=== PATIENT | male | born 1935 | race African-American/Black ===

== ENCOUNTER 2022-09-13 12:16 | Inpatient (IN) ==
[2022-09-13 16:41] VITALS: BMI 28.5
--- NOTE | 2022-09-13 17:31 | DR.UPDATE ---
H&P UPDATE Review Yes Any changes to H&P?: No
[2022-09-13] MEDS: LR 1,000 ML IV 1,000 ML IV SCH (17:36)
[2022-09-13] MEDS ORDERED: PERCOCET TAB 5/325 MG PO PRN (17:37)
[2022-09-13 20:06] LABS: BASOPHILS % (AUTO) 0.5 % (0.2-1.0); EOSINOPHILS # (AUTO) 0.3 x10^3/uL (0.0-0.2); EOSINOPHILS % (AUTO) 5.7 % (0.9-2.9); HEMATOCRIT 24.6 % (42.0-54.0); HEMOGLOBIN 8.3 g/dL (13.5-18.0); LYMPHOCYTES # (AUTO) 1.6 X10^3/uL (1.3-2.9); LYMPHOCYTES % (AUTO) 28.7 % (21.0-51.0); MEAN CORPUSCULAR HEMOGLOBIN 29.8 pg (27.0-34.0); MEAN CORPUSCULAR HGB CONC 33.9 g/dL (33.0-35.0); MEAN CORPUSCULAR VOLUME 87.9 fL (80.0-100.0); MEAN PLATELET VOLUME 7.7 fL (7.4-11.0); MONOCYTES # (AUTO) 0.7 x10^3/uL (0.3-0.8); MONOCYTES % (AUTO) 12.6 % (0.0-13.0); NEUTROPHILS # (AUTO) 2.9 x10^3/uL (2.2-4.8); NEUTROPHILS % (AUTO) 52.5 % (42.0-75.0); RED BLOOD COUNT 2.79 X10^6/uL (4.7-6.0); RED CELL DISTRIBUTION WIDTH 13.7 % (11.6-16.5); WHITE BLOOD COUNT 5.4 X10^3/uL (3.6-10.0)
[2022-09-13 20:14] LABS: ALBUMIN 2.8 g/dL (3.4-5.0); CALCIUM 7.7 mg/dL (8.5-10.1); CARBON DIOXIDE 23.4 mmol/L (21-32); COR CA(FOR HYPOALB) 8.7 mg/dL (8.5-10.1); CREATININE 1.87 mg/dL (0.70-1.30); TOTAL PROTEIN 6.9 g/dL (6.4-8.2)
[2022-09-13] MEDS: APRESOLINE TAB 25 MG PO SCH (20:37)
[2022-09-13] MEDS: CRESTOR TAB 10 MG PO SCH (20:38)
[2022-09-13] MEDS: NovoLIN R (or HumuLIN R) SC PRN (20:39)
--- NOTE | 2022-09-13 21:56 | EKG ---
Test Reason : surgery Blood Pressure : */* mmHG Vent. Rate : 47 BPM Atrial Rate : * BPM P-R Int : * ms QRS Dur : 70 ms QT Int : 454 ms P-R-T Axes : * -32 24 degrees QTc Int : 401 ms Mobitz I AV block, 5:4 Left axis deviation Inferior infarct , age undetermined Abnormal ECG No previous ECGs available Confirmed by Brandon Coello ([id number]) on 09/16/2022 7:11:48 AM Referred By: Confirmed By: Brandon Coello
[2022-09-14] MEDS: LR 1,000 ML IV 1,000 ML IV SCH ×3 (05:12→23:05)
[2022-09-14 06:24] LABS: BASOPHILS % (AUTO) 0.9 % (0.2-1.0); EOSINOPHILS # (AUTO) 0.4 x10^3/uL (0.0-0.2); EOSINOPHILS % (AUTO) 8.4 % (0.9-2.9); HEMOGLOBIN 8.5 g/dL (13.5-18.0); LYMPHOCYTES # (AUTO) 1.4 X10^3/uL (1.3-2.9); LYMPHOCYTES % (AUTO) 30.8 % (21.0-51.0); MEAN CORPUSCULAR HEMOGLOBIN 29.5 pg (27.0-34.0); MEAN CORPUSCULAR HGB CONC 33.8 g/dL (33.0-35.0); MEAN CORPUSCULAR VOLUME 87.4 fL (80.0-100.0); MEAN PLATELET VOLUME 8.2 fL (7.4-11.0); MONOCYTES # (AUTO) 0.6 x10^3/uL (0.3-0.8); MONOCYTES % (AUTO) 12.7 % (0.0-13.0); NEUTROPHILS # (AUTO) 2.1 x10^3/uL (2.2-4.8); NEUTROPHILS % (AUTO) 47.2 % (42.0-75.0); RED BLOOD COUNT 2.86 X10^6/uL (4.7-6.0); RED CELL DISTRIBUTION WIDTH 13.3 % (11.6-16.5); WHITE BLOOD COUNT 4.5 X10^3/uL (3.6-10.0)
[2022-09-14 07:19] LABS: ALBUMIN 2.9 g/dL (3.4-5.0); CALCIUM 7.9 mg/dL (8.5-10.1); CARBON DIOXIDE 23.9 mmol/L (21-32); COR CA(FOR HYPOALB) 8.8 mg/dL (8.5-10.1); CREATININE 1.63 mg/dL (0.70-1.30)
[2022-09-14] MEDS: BENICAR TAB 40 MG PO SCH (08:57)
[2022-09-14] MEDS: NORVASC TAB 10 MG PO SCH (08:57)
[2022-09-14] MEDS: HYDROCHLOROTHIAZIDE 25 MG TAB PO SCH (08:57)
[2022-09-14] MEDS: APRESOLINE TAB 25 MG PO SCH ×3 (08:59→21:34)
[2022-09-14] MEDS ORDERED: LR 1,000 ML IV 1,000 ML IV ONE (10:26)
[2022-09-14] MEDS ORDERED: ANCEF VIAL 1 GRAM ONE (10:26)
[2022-09-14] MEDS ORDERED: NS 100 ML IV 100 ML ONE (10:26)
[2022-09-14] MEDS ORDERED: MARCAINE 0.5% ONE (10:48)
[2022-09-14] MEDS ORDERED: HEPARIN SODIUM IN D5W 75,000 UNITS/1,500 ML BAG ONE (10:49)
[2022-09-14] MEDS ORDERED: DIPRIVAN VIAL 20 ML ONE ×2 (10:54→12:13)
[2022-09-14] MEDS ORDERED: VERSED ONE (10:55)
[2022-09-14] MEDS ORDERED: FENTANYL VIAL INJ 100 mcg ONE (10:56)
[2022-09-14] MEDS ORDERED: ZOFRAN INJ 4 MG VIAL ONE (10:57)
[2022-09-14] MEDS ORDERED: PEPCID 20 MG VIAL ONE (10:57)
[2022-09-14] MEDS ORDERED: KETAMINE HCL ONE (11:10)
--- NOTE | 2022-09-14 11:12 | RAD ---
CHEST, 1 VIEWHISTORY: [id number] LEFT LEGStudy: Single view of the chest.Comparison:NoneFindings:The cardiomediastinal silhouette is normal.No focal consolidations, pleural effusions or pneumothorax. Osseous structures demonstrate no acute abnormality.IMPRESSION:1. No acute cardiopulmonary process.Electronically signed by: TREV BECK (Sep 14, 2022 11:10:44)
[2022-09-14] MEDS ORDERED: HEPARIN SODIUM INJ 5000 UNITS ONE (11:28)
[2022-09-14] MEDS ORDERED: NS 500 ML IV 500 ML IV ONE (11:39)
[2022-09-14] MEDS ORDERED: PERCOCET TAB 5/325 MG PO PRN (12:30)
[2022-09-14] MEDS ORDERED: PROTAMINE SULFATE 50 MG VIAL ONE (12:32)
--- NOTE | 2022-09-14 12:36 | OR.IMMED ---
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
[2022-09-14] MEDS: CRESTOR TAB 10 MG PO SCH (21:35)
[2022-09-14] MEDS: NovoLIN R (or HumuLIN R) SC PRN (21:36)
[2022-09-15 06:21] LABS: BASOPHILS % (AUTO) 0.4 % (0.2-1.0); EOSINOPHILS # (AUTO) 0.4 x10^3/uL (0.0-0.2); EOSINOPHILS % (AUTO) 6.1 % (0.9-2.9); HEMATOCRIT 23.8 % (42.0-54.0); HEMOGLOBIN 8.1 g/dL (13.5-18.0); LYMPHOCYTES # (AUTO) 0.7 X10^3/uL (1.3-2.9); LYMPHOCYTES % (AUTO) 10.7 % (21.0-51.0); MEAN CORPUSCULAR HEMOGLOBIN 29.7 pg (27.0-34.0); MEAN CORPUSCULAR HGB CONC 33.9 g/dL (33.0-35.0); MEAN CORPUSCULAR VOLUME 87.7 fL (80.0-100.0); MEAN PLATELET VOLUME 8.3 fL (7.4-11.0); MONOCYTES # (AUTO) 0.7 x10^3/uL (0.3-0.8); MONOCYTES % (AUTO) 10.6 % (0.0-13.0); NEUTROPHILS # (AUTO) 4.5 x10^3/uL (2.2-4.8); NEUTROPHILS % (AUTO) 72.2 % (42.0-75.0); RED BLOOD COUNT 2.71 X10^6/uL (4.7-6.0); RED CELL DISTRIBUTION WIDTH 13.5 % (11.6-16.5); WHITE BLOOD COUNT 6.2 X10^3/uL (3.6-10.0)
[2022-09-15 06:31] LABS: CALCIUM 7.7 mg/dL (8.5-10.1); CARBON DIOXIDE 22.9 mmol/L (21-32); CREATININE 1.43 mg/dL (0.70-1.30)
[2022-09-15 07:56] VITALS: BP 189/79
[2022-09-15] MEDS: APRESOLINE TAB 25 MG PO SCH (08:45)
[2022-09-15] MEDS: BENICAR TAB 40 MG PO SCH (08:45)
[2022-09-15] MEDS: HYDROCHLOROTHIAZIDE 25 MG TAB PO SCH (08:45)
[2022-09-15] MEDS: NORVASC TAB 10 MG PO SCH (08:45)
[2022-09-15] MEDS: LR 1,000 ML IV 1,000 ML IV SCH (09:15)
--- NOTE | 2022-09-15 11:51 | W.DIS.FURT ---
Summary of Discharge Discharge Summary of Date Date of Exam: 09/15/22 Admission Date Date of Admission: 09/13/22 Admission Diagnosis Hospital Course: 87 year old male who presented to my office on September 13. He has a history of a right transmetatarsal amputation. He has had all the toes of the left foot removed except for the small toe which had evidence of dry gangrene. 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 He has a history of diabetes. He is not a smoker. 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 He has done well. Discharge today on his usual medications plus Xarelto 2.5 mg BID and aspirin 81 mg po daily . He follow up in one week with me . He will need intervention of the right leg in the future. He will be referred back to Dr. Santoyo who will address the gangrenous toe with amputation. Amputation should heal now that wwe have re-established adequate blood floe to the left foot. Vital Signs: Vital Signs (72 hours) 09/13/22 15:27 09/13/22 16:00 09/13/22 17:41 Temperature 98.6 F Pulse Rate [Left Radial] 60 Respiratory Rate 18 Blood Pressure [Left Arm] Blood Pressure [Right Arm] 155/72 O2 Sat by Pulse Oximetry 100 Oxygen Delivery Method Room Air Room Air 09/13/22 20:38 09/13/22 20:00 09/13/22 19:00 Temperature 97.9 F Pulse Rate [Left Radial] 63 Respiratory Rate 16 18 Blood Pressure [Left Arm] Blood Pressure [Right Arm] 176/77 O2 Sat by Pulse Oximetry 99 Oxygen Delivery Method Room Air Room Air 09/13/22 21:38 09/14/22 00:00 09/14/22 04:00 Temperature 97.7 F 97.8 F Pulse Rate [Left Radial] 55 L 68 Respiratory Rate 18 18 18 Blood Pressure [Left Arm] Blood Pressure [Right Arm] 158/72 160/68 O2 Sat by Pulse Oximetry 97 96 Oxygen Delivery Method Room Air 09/14/22 07:43 09/14/22 08:00 09/14/22 12:50 Temperature 98 F 97.6 F Pulse Rate [Left Radial] 62 64 Respiratory Rate 20 18 Blood Pressure [Left Arm] Blood Pressure [Right Arm] 160/60 186/79 O2 Sat by Pulse Oximetry 97 99 Oxygen Delivery Method Room Air Room Air Room Air 09/14/22 13:05 09/14/22 13:20 09/14/22 13:35 Temperature 97.6 F 97.6 F 97.6 F Pulse Rate [Left Radial] 50 L 63 64 Respiratory Rate 18 18 18 Blood Pressure [Left Arm] Blood Pressure [Right Arm] 167/74 173/70 182/81 O2 Sat by Pulse Oximetry 99 100 100 Oxygen Delivery Method Room Air Room Air Room Air 09/14/22 13:50 09/14/22 14:50 09/14/22 15:50 Temperature 97.6 F 97.6 F 97.6 F Pulse Rate [Left Radial] 64 57 L 58 L Respiratory Rate 18 18 18 Blood Pressure [Left Arm] Blood Pressure [Right Arm] 175/81 179/76 170/78 O2 Sat by Pulse Oximetry 99 99 98 Oxygen Delivery Method Room Air Room Air Room Air 09/14/22 16:50 09/14/22 19:00 09/14/22 20:00 Temperature 97.6 F 98.5 F Pulse Rate [Left Radial] 57 L 65 Respiratory Rate 18 18 Blood Pressure [Left Arm] Blood Pressure [Right Arm] 179/76 136/72 O2 Sat by Pulse Oximetry 99 98 Oxygen Delivery Method Room Air Room Air Room Air 09/15/22 00:00 09/15/22 04:00 09/15/22 07:56 Temperature 98.6 F 98.0 F 98.8 F Pulse Rate [Left Radial] 64 64 80 Respiratory Rate 20 20 18 Blood Pressure [Left Arm] 167/70 156/73 189/79 Blood Pressure [Right Arm] O2 Sat by Pulse Oximetry 97 97 95 Oxygen Delivery Method Room Air 09/15/22 07:00 Temperature Pulse Rate [Left Radial] Respiratory Rate Blood Pressure [Left Arm] Blood Pressure [Right Arm] O2 Sat by Pulse Oximetry Oxygen Delivery Method Room Air Labs: Laboratory Last Values WBC 6.2 X10^3/uL (3.6-10.0) 09/15/22 05:23 RBC 2.71 X10^6/uL (4.7-6.0) L 09/15/22 05:23 Hgb 8.1 g/dL (13.5-18.0) L 09/15/22 05:23 Hct 23.8 % (42.0-54.0) L 09/15/22 05:23 MCV 87.7 fL (80.0-100.0) 09/15/22 05:23 MCH 29.7 pg (27.0-34.0) 09/15/22 05:23 MCHC 33.9 g/dL (33.0-35.0) 09/15/22 05:23 RDW 13.5 % (11.6-16.5) 09/15/22 05:23 Plt Count 202 X10^3/uL (150.0-450.0) 09/15/22 05:23 MPV 8.3 fL (7.4-11.0) 09/15/22 05:23 Neut % (Auto) 72.2 % (42.0-75.0) 09/15/22 05:23 Lymph % (Auto) 10.7 % (21.0-51.0) L 09/15/22 05:23 Roberts % (Auto) 10.6 % (0.0-13.0) 09/15/22 05:23 Eos % (Auto) 6.1 % (0.9-2.9) H 09/15/22 05:23 Baso % (Auto) 0.4 % (0.2-1.0) 09/15/22 05:23 Neut # (Auto) 4.5 x10^3/uL (2.2-4.8) 09/15/22 05:23 Lymph # (Auto) 0.7 X10^3/uL (1.3-2.9) L 09/15/22 05:23 Roberts # (Auto) 0.7 x10^3/uL (0.3-0.8) 09/15/22 05:23 Eos # (Auto) 0.4 x10^3/uL (0.0-0.2) H 09/15/22 05:23 Baso # (Auto) 0.0 X10^3/uL (0.0-0.1) 09/15/22 05:23 Absolute Nucleated RBC 0.1 /100WBC 09/15/22 05:23 Sodium 139 mmol/L (136-145) 09/15/22 05:23 Corrected Sodium 140 mmol/L (136-145) 09/15/22 05:23 Potassium 5.0 mmol/L (3.5-5.1) 09/15/22 05:23 Chloride 108 mmol/L (98-107) H 09/15/22 05:23 Carbon Dioxide 22.9 mmol/L (21-32) 09/15/22 05:23 BUN 22 mg/dL (7-18) H 09/15/22 05:23 Creatinine 1.43 mg/dL (0.70-1.30) H 09/15/22 05:23 Est GFR (MDRD) Af Amer 60 (>60) 09/15/22 05:23 Est GFR (MDRD) Non-Af 50 (>60) L 09/15/22 05:23 Glucose 155 mg/dL (65-99) H 09/15/22 05:23 POC Glucose (mg/dL) 247 mg/dL (65-99) H 09/15/22 10:33 Calcium 7.7 mg/dL (8.5-10.1) L 09/15/22 05:23 Corrected Calcium 8.8 mg/dL (8.5-10.1) 09/14/22 05:25 Total Bilirubin 0.30 mg/dL (0.2-1.0) 09/14/22 05:25 AST 25 Units/L (15-37) 09/14/22 05:25 ALT 26 Units/L (12-78) 09/14/22 05:25 Alkaline Phosphatase 53 Units/L (46-116) 09/14/22 05:25 Total Protein 7.0 g/dL (6.4-8.2) 09/14/22 05:25 Albumin 2.9 g/dL (3.4-5.0) L 09/14/22 05:25 Globulin 4.1 g/dL (2.5-4.5) 09/14/22 05:25 Albumin/Globulin Ratio 0.7 Ratio (1.1-2.1) L 09/14/22 05:25 Blood Type O POSITIVE 09/14/22 10:43 Antibody Screen Negative 09/14/22 10:40 Reason For Visit: CRITICAL ISCHEMIA LEFT LEG Discharge Date Discharge Date: 09/15/22 Discharge Diagnosis All Active Problems (Updated 09/13/22 @ 19:39 by Tino Bedoya) Atherosclerosis of [place] arteries of extremities with rest pain, right leg (Acute) Atherosclerosis of [place] arteries of extremities with rest pain, left leg (Acute) Plan of Treatment: Continue with present treatment and follow up plan. Pt is to keep follow up appointment as instructed and take medications as ordered. Discharge Medications Discharge Medications: No Known Allergies Allergy (Verified 09/14/22 07:05) CONTINUE taking the following medications amlodipine 10 mg-olmesartan 40 mg tablet 1 tab PO QAM 09/13/22 [History] aspirin 81 mg tablet 81 mg PO QDAY 09/13/22 [History] glimepiride 2 mg tablet 2 mg PO QAM 09/13/22 [History] hydralazine 50 mg tablet 2 tab PO QPM 09/13/22 [History] hydrochlorothiazide 25 mg tablet 25 mg PO DAILY 09/13/22 [History] New Prescriptions rivaroxaban 2.5 mg tablet (Xarelto) 2.5 mg PO BID #180 tabs 09/15/22 [Rx] Discharge Disposition Assessment: No acute distress noted at time of discharge. Discharge Plan Discharge Plan Hospital Course: 87 year old male who presented to my office on September 13. He has a history o f a right transmetatarsal amputation. He has had all the toes of the left foot removed except for the small toe which had evidence of dry gangrene. 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 He has a history of diabetes. He is not a smoker. 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 He has done well. Discharge today on his usual medications plus Xarelto 2.5 mg BID and aspirin 81 mg po daily . He follow up in one week with me . He will need intervention of the right leg in the future. He will be referred back to Dr. Santoyo who will address the gangrenous toe with amputation. Amputation should heal now that wwe have re-established adequate blood floe to the left foot. Patient Disposition: 06 HOME HEALTH SERVICE Condition: Stable Health Concerns: Post Hospitalization: new medications and changes needed to prevent readmission or further decline. Pt educated and given instructions on all concerns. Care Plan Goals: Problem: Pain/Alteration in Comfort Goal: Improve/ Resolve Pain; Achieve Pain Tolerance Instructions: Take pain medications as prescribed. Contact your primary care provider if your pain is unrelieved or worsens. Follow up with primary care provider as directed. Plan of Treatment: Continue with present treatment and follow up plan. Pt is to keep follow up appointment as instructed and take medications as ordered. Assessment: No acute distress noted at time of discharge. Prescription drug monitoring program results: PDMP reviewed and no concerns identified Prescriptions: New Xarelto 2.5 mg Tablet 2.5 mg PO BID Qty: 180 0RF No Action glimepiride 2 mg tablet 2 mg PO QAM hydralazine 50 mg tablet 2 tab PO QPM aspirin 81 mg Tablet 81 mg PO QDAY hydrochlorothiazide [HydroDiuril] 25 mg Tablet 25 mg PO DAILY amlodipine-olmesartan 10-40 mg tablet 1 tab PO QAM Follow ups/Referrals Follow ups/Referrals: Cinthya PHAM [Other] - 09/15/22 10:45 am Tino Bedoya [STAFF PHYSICIAN] - 09/27/22 11:30 am SEGUN SANTOYO [REFERRING] - 09/29/22 10:30 am Instructions Instructions: Bleeding Precautions When on Anticoagulant Therapy, Adult, Pain Relief Before and After Surgery, Atherosclerosis, Wound Infection, Myxk-ap-[id number], How to Change Your Wound Dressing, [id number]
[2022-09-15] MEDS: NovoLIN R (or HumuLIN R) SC PRN (11:57)
--- NOTE | 2022-09-16 16:40 | DR.OPNOTE ---
OP NOTE Pre-Op Diagnosis: Critical limb ischemia left leg with gangrene of the left 5th toe Post-Op Diagnosis: same Procedure Date Date Of Procedure: 09/14/22 Procedure: PROCEDURE: DIAGNOSTIC AORTOGRAM, DIAGNOSTIC ARTERIOGRAM, ATHERECTOMY AND BALLOON ANGIOPLASTY LEFT PERONEAL ARTERY, ATHERECTOMY AND DRUGCOATED BALLOON ANGIOPLASTY AND DRUG COATED STENT PLACEMENT LEFT POPLITEAL ARTERY NARRATIVE: The patient was taken to the operative suite and placed in the supine position. The right groin and entire left leg were prepped and draped in sterile fashion. Patient was administered intravenous sedation supervised by myself. Time out for the procedure obtained . Ultrasound used to identify the right femoral artery and the skin overlying it infiltrated with 0.5% Marcaine. Ultrasound then used to guide puncture of the right femoral artery and a 0.012 inch guide wire placed. And incision was made over this wire at the skin edge with a # 11knife blade and a micro sheath placed over the guide wire into the right femoral artery The small wire exchanged for a 0.035 inch Advantage glide wire and the micro sheath exchanged for a 5 Fr vascular sheath . Omni catheter placed over the guide wire and diagnostic aortogram carried out showin g normal aorta and normal iliac arteries bilaterally. Omni catheter used to steer the guidewire down the left leg artery to the left external iliac artery . Omni catheter exchanged for a [place] catheter. Sequential arteriograms carried out of the left leg showing complete occlusion of the proximal left popliteal artery with reconstitution of the distal popliteal artery . The anterior tibial artery appeared occluded. The left peroneal artery was the main run off to the leg but had significant stenosis proximately. The left posterior tibial artery was occluded proximally and then reconstituted distally going to the ankle. The 5 Fr sheath in the right groin exchanged for a 7 Fr destination sheath which was placed placed in the proximal common femoral artery . Using the guide wire and the [place] catheter we were able to get across the total occlusion into the popliteal artery . This was selective catheterization. The 0.035 inch wire exchanged for a 0.014 guide wire . The [place] catheter removed and the [place] atherectomy device placed over the 0.014 wire performing atherectomy of the popliteal and peroneal arteries using two runs . Atherectomy device removed. The proximal left peroneal artery was then balloon dilated with a 3 mm by 150 mm [employer] [place] balloon. Follow up arteriogram showed an excellent result. The area of the total occlusion of the left popliteal artery was balloon dilated with a 6 mm x 200 mm [employer] drug coated [place] balloon. This was inflated for 3 minutes. The balloon removed and follow up arteriogram suggested filling defect still in the popliteal artery at the level of the patella. For this reason we placed a 6 mm x 80 mm Margarita drug-coated stent distally at the knee joint and extending it proximally and then dilated it with a 6 mm by 80 mm [employer] [place] balloon. Follow up arteriogram showed excellent flow all the way to the foot. Patient had been given 5000 units of heparin at the beginning of the case. 30 mg IV Protamine given. Devices and wires removed from the destination sheath . The destination sheath pulled back into the aorta and a 0.035 inch guide wire placed. The d estination sheath exchanged change for an Angioseal device which was used to close the puncture of the right femoral artery . Pressure held at the right groin puncture site for 5 minutes and dressing applied and the patient taken back to his room on the second floor. He tolerated this well. 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 Type of Fluids Used:: Lactated Ringers Total Amount of Fluid Infused:: 650cc EBL: 100 cc Hardware: left popliteal drug coated stent Complications:: none Needle/Sponge Count:: correct Disposition/Condition: Pt. tolerated procedure without difficulty. Taken to [facility] in stable condition.
== END 2022-09-15 12:35 | disposition home health service (06) | DRG 271 ==
LOC: MED/SURG 15:17
PROVIDERS: ADMIT Surgery; ATTEND Surgery
DX: I70.223 Atherosclerosis of native arteries of extremities with rest pain, bilateral legs; I96 Gangrene, not elsewhere classified; I10 Essential (primary) hypertension; E78.5 Hyperlipidemia, unspecified; E11.65 Type 2 diabetes mellitus with hyperglycemia